=== PATIENT | male | born 1970 | race Hispanic/Latino ===

== ENCOUNTER 2024-06-16 15:55 | Observation (INO) | payer BC ==
[2024-06-16 16:26] LABS: #Basophils Less than 0.03 10x3/uL (0.0-0.2); %Basophils 0.1 % (0.0-1.0); %Eosinophils 0.8 % (0.0-10.0); %Monocytes 4.3 % (0.0-10.0); %Neutrophils 76.2 % (42.0-75.0); Hematocrit 47.4 % (42.0-52.0); Hemoglobin 16.6 g/dL (14.0-18.0); Mean Corpuscular Hemoglobin 29.2 pg (27.0-31.0); Mean Corpuscular Volume 83.3 fL (78.0-98.0); Platelet Count 190 10x3/uL (130-400); RBC Distribution Width 13.9 % (11.5-14.5); Red Blood Cell (RBC) Count 5.69 mill/uL (4.70-6.10)
[2024-06-16] MEDS ORDERED: Ondansetron PF 4 MG/2 ML Vial ONE (16:43)
[2024-06-16 16:57] LABS: ALT (SGPT) 14 U/L (8-55); AST (SGOT) 17 U/L (5-34); Albumin 4.6 g/dL (3.5-5.0); Alkaline Phosphatase 93 U/L (40-110); Anion Gap 21 mmol/L (10-20); BUN (Urea Nitrogen) 22 mg/dL (8.4-25.7); Bilirubin, Total 0.4 mg/dL (0.2-1.2); Calc. Creatinine Clearance 0 mL/min (70-130); Calcium 10.4 mg/dL (7.8-10.44); Carbon Dioxide 18 mmol/L (22-29); Chloride 103 mmol/L (98-107); Estimated GFR 48; Glucose 197 mg/dL (70-105); Potassium 3.9 mmol/L (3.5-5.1); Protein, Total 8.6 g/dL (6.0-8.3); Sodium 138 mmol/L (136-145)
[2024-06-16 17:00] LABS: Troponin I Less than 0.010 ng/mL (< 0.028)
[2024-06-16 18:25] LABS: Base Excess -2.3 mEq/L (-2.0 to +3.0); Chloride (VBG) 107 mmol/L (98-106); Hematocrit-VBG 42 % (42.0-52.0); Hemoglobin (Hb) 14.2 g/dL (13.1-17.2); Potassium (VBG) 4.29 mmol/L (3.70-5.30); pH (venous) 7.327 (7.32-7.43)
[2024-06-16] MEDS ORDERED: Sodium Chloride 0.9% 100 ML ONE (19:00)
[2024-06-16] MEDS ORDERED: Piperacillin/Tazobactam 4.5 GM VIAL ONE (19:00)
[2024-06-16 19:47] LABS: Bacteria/HPF None Seen HPF (None Seen); Bilirubin Negative (Negative); Blood, Urine Negative (Negative); CAUTI Indications for Culture Pelvic or flank pain; Clarity Clear (Clear); Glucose, Urine (Dipstick) 200 mg/dL (Negative); Ketone, Urine Trace mg/dL (Negative); Leukocyte Negative Leu/uL (Negative); Nitrite Negative (Negative); Protein, Urine (Dipstick) 10 mg/dL (Neg-Trace); RBC/HPF 0-3 HPF (0-3); Specific Gravity, Urine 1.013 (1.002-1.036); Squamous Epithelial 0-3 HPF (0-3); Urobilinogen Normal mg/dL (Less than 2); WBC/HPF 0-3 HPF (0-3); pH, Urine 5.5 (5.0-9.0)
[2024-06-16 19:48] LABS: Urine Culture Reflex No No
[2024-06-16] MEDS ORDERED: Calcium Carbonate 500 MG ChewTAB PO PRN (21:44)
[2024-06-16] MEDS ORDERED: Dextrose 50% Abboject 50 ML SYRINGE SLOW IVP PRN (21:44)
[2024-06-16] MEDS ORDERED: Insulin Lispro 100 UNIT/ML 10 ML VIAL SC PRN (21:44)
[2024-06-16] MEDS ORDERED: Acetaminophen 325 MG TAB PO PRN (21:44)
[2024-06-16] MEDS ORDERED: Glucagon 1 MG/ML KIT IM PRN (21:44)
[2024-06-16] MEDS ORDERED: Dextrose 5% in Water 1,000 ML IV PRN (21:44)
[2024-06-16] MEDS ORDERED: Ondansetron PF 4 MG/2 ML Vial IVP PRN (22:00)
[2024-06-16 22:03] VITALS: BMI 26.7
[2024-06-16] MEDS: Famotidine/PF 20 mg/2ml Vial SLOW IVP SCH (23:17)
[2024-06-16] MEDS: Sodium Chloride 0.9% 1,000 ML IV SCH (23:17)
[2024-06-17 05:59] LABS: #Basophils 0.05 10x3/uL (0.0-0.2); %Basophils 0.4 % (0.0-1.0); %Eosinophils 5.5 % (0.0-10.0); %Monocytes 8.3 % (0.0-10.0); %Neutrophils 79.3 % (42.0-75.0); Hematocrit 35.7 % (42.0-52.0); Hemoglobin 12.2 g/dL (14.0-18.0); Mean Corpuscular HGB CONC 34.2 g/dL (32.0-36.0); Mean Corpuscular Volume 84.8 fL (78.0-98.0); Mean Platelet Volume 12.9 fL (7.4-10.4); Platelet Count 146 10x3/uL (130-400); RBC Distribution Width 13.9 % (11.5-14.5); Red Blood Cell (RBC) Count 4.21 mill/uL (4.70-6.10)
[2024-06-17 07:30] LABS: ALT (SGPT) 10 U/L (8-55); AST (SGOT) 13 U/L (5-34); Albumin 2.9 g/dL (3.5-5.0); Alkaline Phosphatase 48 U/L (40-110); Anion Gap 10 mmol/L (10-20); BUN (Urea Nitrogen) 17 mg/dL (8.4-25.7); Bilirubin, Total 0.5 mg/dL (0.2-1.2); Calc. Creatinine Clearance 101 mL/min (70-130); Calcium 7.8 mg/dL (7.8-10.44); Carbon Dioxide 18 mmol/L (22-29); Chloride 110 mmol/L (98-107); Estimated GFR 103; Globulin 2.7 g/dL (2.4-3.5); Glucose 188 mg/dL (70-105); Magnesium 1.4 mg/dL (1.6-2.6); Potassium 4.1 mmol/L (3.5-5.1); Protein, Total 5.6 g/dL (6.0-8.3); Sodium 134 mmol/L (136-145)
[2024-06-17] MEDS: Enoxaparin 40 MG (0.4 mL) SYRINGE SC SCH (08:46)
[2024-06-17] MEDS: Insulin Lispro 100 UNIT/ML 10 ML VIAL SC PRN (13:08)
[2024-06-17 15:08] VITALS: BP 151/81; TEMP 98.6
[2024-06-17] MEDS: FLU (Fluarix Triv) TS24-25(6MOS UP)/PF 45 MCG/0.5 ML Syringe IM ONE (17:40)
== END 2024-06-17 17:50 | disposition home or self-care (01) ==
LOC: SUATTDRO 15:55 → ERS 15:55 → EDBD 15:55 → MSONC 20:25
PROVIDERS: ADMIT Internal Medicine; ATTEND Family Medicine
DX: K52.9 Noninfective gastroenteritis and colitis, unspecified (principal); N17.9 Acute kidney failure, unspecified; E86.0 Dehydration; E87.20 Acidosis, unspecified; R55 Syncope and collapse; E11.9 Type 2 diabetes mellitus without complications; Z79.84 Long term (current) use of oral hypoglycemic drugs; Z79.899 Other long term (current) drug therapy
CPT/HCPCS: 36415; 36416; 71045; 80053; 81001; 82805; 83605; 83735; 84484; 85025; 87040; 87428; 90656; 93005; 96361; 96365; 96372; 96375; G0378; J1650; J1815; J2405; J2543; J3490; J7030